=== PATIENT | female | born 1960 | race Native Hawaiian/Other Pacific Islander ===

== ENCOUNTER 2016-07-03 12:20 | Emergency (ER) | payer BC ==
[~2016-07-03] VITALS: Ht 165.1 cm; Wt 107.5 kg
[2016-07-03 12:20] VITALS: TEMP 98.4
[2016-07-03 12:41] VITALS: BP 149/80
[2016-07-03 12:43] LABS: PLATELET COUNT 290 K/uL (152-353)
[2016-07-03] MEDS ORDERED: LISITAB PO (12:48)
[2016-07-03] MEDS ORDERED: FENOFIBRATE MI134 MG PO (12:49)
[2016-07-03] MEDS ORDERED: LEVO-T50 MCG PO (12:49)
[2016-07-03 13:07] LABS: PARTIAL THROMBOPLASTIN TIME 22.5 SECONDS (24.5-33.6)
[2016-07-03 13:14] LABS: SODIUM 139 mmol/L (136-145)
== END 2016-07-03 14:06 | disposition home or self-care (01) ==
LOC: ED 12:20
DX: I25.10 Atherosclerotic heart disease of native coronary artery without angina pectoris (principal); R00.0 Tachycardia, unspecified
CPT/HCPCS: 80053; 82550; 84484; 85027; 85610; 85730; 86318; 93005; 99283

== ENCOUNTER 2016-09-15 12:18 | Emergency (ER) | payer BC ==
[~2016-09-15] VITALS: Ht 162.6 cm; Wt 104.3 kg
[~2016-09-15 12:18] MED LIST: FENOFIBRATE MI134 MG PO; LEVO-T50 MCG PO; LISITAB PO
[2016-09-15 12:20] VITALS: TEMP 98.6
[2016-09-15 14:20] VITALS: BP 148/92
== END 2016-09-15 14:25 | disposition home or self-care (01) ==
LOC: ED 12:18
PROC: 0HQMXZZ Repair Right Foot Skin, External Approach (ICD-10-PCS; principal; 2016-09-15)
DX: S91.321A Laceration with foreign body, right foot, initial encounter (principal); W25.XXXA Contact with sharp glass, initial encounter; W45.8XXA Other foreign body or object entering through skin, initial encounter; Y92.098 Other place in other non-institutional residence as the place of occurrence of the external cause
CPT/HCPCS: 90715; 99283; J7040

== ENCOUNTER 2021-03-26 15:38 | Outpatient (CLI) | payer OTHER | END 2021-03-26 19:18 | disposition home or self-care (01) | LOC: RAD 15:38 | PROVIDERS: ATTEND Family Medicine | DX: Z09 Encounter for follow-up examination after completed treatment for conditions other than malignant neoplasm (principal); Z86.16 Personal history of COVID-19 ==

== ENCOUNTER 2021-12-03 12:55 | Outpatient (CLI) | payer OTHER | END 2021-12-03 19:00 | disposition home or self-care (01) | LOC: RAD 12:55 | PROVIDERS: ATTEND Physician Assistant | DX: M25.551 Pain in right hip (principal) ==

== ENCOUNTER 2022-04-16 13:05 | Outpatient (CLI) | payer OTHER | END 2022-04-16 20:42 | disposition home or self-care (01) | LOC: MAMMO 13:05 | PROVIDERS: ATTEND Nurse Practitioner Family | DX: Z12.31 Encounter for screening mammogram for malignant neoplasm of breast (principal) ==

== ENCOUNTER 2022-05-22 16:09 | Outpatient (CLI) | payer OTHER | END 2022-05-22 19:06 | disposition home or self-care (01) | LOC: RAD 16:09 | PROVIDERS: ATTEND Physician Assistant | DX: M54.2 Cervicalgia (principal); M54.59 Other low back pain ==

== ENCOUNTER 2022-08-21 12:27 | Day surgery (SDC) | payer OTHER ==
[~2022-08-21] VITALS: Ht 165.1 cm; Wt 68.0 kg
== END 2022-08-21 14:15 | disposition home or self-care (01) ==
LOC: OR 12:27
PROVIDERS: ATTEND Internal Medicine Gastroenterology
PROC: 0DBL8ZX Excision of Transverse Colon, Via Natural or Artificial Opening Endoscopic, Diagnostic (ICD-10-PCS; principal; 2022-08-21)
DX: Z12.11 Encounter for screening for malignant neoplasm of colon (principal); D12.3 Benign neoplasm of transverse colon; K57.30 Diverticulosis of large intestine without perforation or abscess without bleeding; K64.0 First degree hemorrhoids
CPT/HCPCS: J2704; J7120

== ENCOUNTER 2022-09-19 10:37 | Outpatient (CLI) | payer OTHER | END 2022-09-19 18:57 | disposition home or self-care (01) | LOC: CT 10:37 | PROVIDERS: ATTEND Nurse Practitioner Family | DX: Z87.891 Personal history of nicotine dependence (principal) ==